=== PATIENT | male | born 1940 | race African-American/Black ===

== ENCOUNTER 2018-08-14 16:00 | Inpatient (IN) ==
[2018-08-14] MEDS ORDERED: NS 1,000 ML IV ONE ×2 (17:31→21:02)
--- NOTE | 2018-08-14 18:02 | PROVIDER DOCUMENTATION ---
This chart was entered by Pita Chinchilla Scribe, acting as scribe for Bandar Tovar MD. HPI-General Adult - General Source: patient - History of Present Illness -Gen Adult Nature of Presenting Problems: Patient is a 77 year old male who presents with low blood pressure. Patient states he was being seen at his PCP's office and was informed he had a low blood pressure. Family states patient has had fever, chills, shortness of breath, and cough for 1 week. States was seen in ED 5 days ago. Location of Pain/Injury: reports: none Pain Radiation: reports: no radiation Quality of Pain: reports: none Severity: reports: mild Onset/Duration: reports: last week Timing: reports: still present Context/Activities at Onset: reports: light activity Associated Symptoms: reports: cough, fever/chills, shortness of breath Similar Symptoms Previously?: Yes Recently seen or treated by another doctor?: Yes <Bandar Tovar - Last Filed: 08/14/18 19:17> <Marguerite Waters - Last Filed: 08/14/18 21:10> - General Chief Complaint: B/P Problems Stated Complaint: LOW BP Time Seen by Provider: 08/14/18 17:11 Allergies/Adverse Reactions: Patient Allergies Allergy/AdvReac Type Severity Reaction Status Date / Time No Known Allergies Allergy Verified 08/14/18 18:00 Home Medications: Home Medication List Medication Instructions Recorded Confirmed Last Taken Type Esomeprazole [Nexium] 40 mg PO DAILY 02/11/14 01/25/18 02/11/14 History Tamsulosin [Flomax] 0.4 mg PO DAILY 02/11/14 01/25/18 02/10/14 History Doxycycline 100 mg PO BID #20 tablet 01/25/18 Unknown Rx Meloxicam 15 mg PO DAILY 01/25/18 01/25/18 Unknown History Metformin [Glucophage] 500 mg PO DAILY 01/25/18 01/25/18 Unknown History PRAVAstatin [Pravachol] 20 mg PO DAILY 01/25/18 01/25/18 Unknown History Sertraline [Zoloft] 50 mg PO DAILY 01/25/18 01/25/18 Unknown History Valsartan 160 mg PO DAILY 01/25/18 01/25/18 Unknown History Dicyclomine [Bentyl] 20 mg PO BID #20 cap 08/08/18 Unknown Rx Ondansetron [Zofran] 4 mg PO Q6H PRN PRN #20 tab 08/08/18 Unknown Rx Review of Systems - Adult - REVIEW OF SYSTEMS - ADULT Constitutional: reports: see HPI, chills, fever. denies: fatique Eyes: reports: no symptoms reported Ears, Nose, Mouth & Throat: reports: no symptoms reported Cardiovascular: reports: no symptoms reported Respiratory: reports: see HPI, cough, shortness of breath. denies: wheezing Gastrointestinal: reports: no symptoms reported Genitourinary: reports: no symptoms reported Musculoskeletal: reports: no symptoms reported. denies: back pain, muscle aches, neck pain Integumentary: reports: no symptoms reported Neurological: reports: no symptoms reported Psychiatric: reports: no symptoms reported Endocrine: reports: no symptoms reported Hematologic/Lymphatic: reports: no symptoms reported Allergic/Immunologic: reports: no symptoms reported All Other Systems: Reviewed and Negative <Bandar Tovar - Last Filed: 08/14/18 19:17> Past History - Adult - PAST MEDICAL HISTORY-ADULT Review of Records: reports: Old Records Reviewed, Nursing Assessment Review, Medications Reviewed, Social history reviewed & non-contributory. Major Childhood Illnesses: reports: denies history Cardiovascular: reports: HTN Respiratory: reports: COPD Gastrointestinal: reports: GERD Obstetrical/Gynecological: reports: denies history Genitourinary: reports: denies history Musculoskeletal: reports: denies history Neurological: reports: denies history Psychiatric: reports: denies history Endocrine/Immune: reports: Diabetes Other Conditions: reports: denies history - PRIOR SURGERIES/PROCEDURES Surgical/Procedure History: reports: orthopedic (extremity) (foot), other (eye) - IMMUNIZATION STATUS Childhood Immunizations: See Nurse Assessment Flu Vaccine: See Nurse Assessment - FAMILY HISTORY Family History: reviewed, not pertinent - SOCIAL HISTORY Smoking: cigarettes, less than 1 pack/day Provider spent 3-5 mins advising pt. on dangers of tobacco.: Discussed manners to quit use, and f/u contacts for add'l counseling. Substance Use: alcohol Alcohol Use Frequency: rarely Living Situation: family <Bandar Tovar - Last Filed: 08/14/18 19:17> Physical Exam-General - PHYSICAL EXAM-ADULT Initial Vital Signs Reviewed: Yes - CONSTITUTIONAL General Appearance: alert, no apparent distress. negative: lethargic, slow to respond - HEAD, EARS, NOSE, MOUTH & THROAT HENMT: normocephalic/atraumatic, moist mucous membranes. negative: angioedema, hearing deficit - RESPIRATORY Respiratory: chest non-tender, wheezing (bilateral). negative: crackles, stridor - CARDIOVASCULAR Cardiovascular: normal peripheral pulses, regular rate, rhythm. negative: tachycardia, systolic murmur - GASTROINTESTINAL (ABDOMEN) Abdominal Exam: normal bowel sounds, soft, tenderness (epigastric). negative: guarding, rebound - MUSCULOSKELETAL Extremity: non-tender, normal inspection. negative: deformity, erythema - SKIN Integumentary: normal color, normal turgor, warm/dry. negative: ecchymosis, erythema, jaundice, rash - NEUROLOGIC Neurologic: grossly normal. negative: aphasia, facial droop - PSYCHIATRIC Psych/Mental Status: normal mood/affect, oriented x 3. negative: anxious <Bandar Tovar - Last Filed: 08/14/18 19:17> Progress - PLAN OF CARE/RESULTS Progress/Plan/Lab Results: Vital Signs - 8 hr 08/14/18 16:18 Temperature 97.4 F L Pulse Rate 74 Respiratory Rate 18 Blood Pressure 79/55 O2 Sat by Pulse Oximetry 97 Result Diagrams: 08/14/18 16:23 08/14/18 16:23 - EKG 1 Time of EKG reading by physician:: 16:26 EKG Read and Signed by:: Bandar Tovar EKG Interpretation (*Must complete 3 of following elements*): Normal Rate: 69 Rhythm: normal sinus rhythm [place]: normal QRS: normal CO Interval: normal ST Wave: normal Comments: normal ECG - CHANGE OF SHIFT REPORT (ED Provider) 1 Report Given and Care Transferred to:: Dr Waters Time of Transfer: 19:00 Items Pending: Labs <Bandar Tovar - Last Filed: 08/14/18 19:17> - PLAN OF CARE/RESULTS Progress/Plan/Lab Results: Vital Signs - 8 hr 08/14/18 16:18 08/14/18 16:47 08/14/18 16:50 Temperature 97.4 F L Pulse Rate 74 68 66 Respiratory Rate 18 17 Blood Pressure 79/55 108/67 O2 Sat by Pulse Oximetry 97 99 97 08/14/18 17:00 08/14/18 17:10 08/14/18 17:20 Temperature Pulse Rate 66 76 71 Respiratory Rate 15 14 16 Blood Pressure O2 Sat by Pulse Oximetry 98 98 99 08/14/18 17:30 08/14/18 17:40 08/14/18 17:44 Temperature Pulse Rate 67 69 77 Respiratory Rate 18 19 18 Blood Pressure 119/80 O2 Sat by Pulse Oximetry 99 99 98 08/14/18 17:50 08/14/18 17:54 08/14/18 18:00 Temperature Pulse Rate 78 74 68 Respiratory Rate 21 19 19 Blood Pressure 119/80 O2 Sat by Pulse Oximetry 99 98 98 08/14/18 18:02 08/14/18 18:32 08/14/18 19:02 Temperature Pulse Rate 67 85 71 Respiratory Rate 18 21 19 Blood Pressure 108/67 108/68 117/70 O2 Sat by Pulse Oximetry 97 98 98 08/14/18 19:54 08/14/18 20:02 08/14/18 20:04 Temperature Pulse Rate 74 72 72 Respiratory Rate 12 16 14 Blood Pressure 104/60 117/64 113/71 O2 Sat by Pulse Oximetry 99 96 96 08/14/18 20:32 Temperature Pulse Rate 74 Respiratory Rate 18 Blood Pressure 101/74 O2 Sat by Pulse Oximetry 95 Laboratory Results - last 24 hr 08/14/18 08/14/18 08/14/18 16:23 16:23 16:23 WBC 5.66 RBC 3.62 L Hgb 11.2 L Hct 32.9 L MCV 90.9 MCH 30.9 MCHC 34.0 RDW Std Deviation 12.8 Plt Count 314 MPV 9.3 Immature Gran % (Auto) 0.7 H Neut % (Auto) 68.0 Lymph % (Auto) 21.2 Potter % (Auto) 7.4 Eos % (Auto) 2.3 Baso % (Auto) 0.4 Immature Gran # (Auto) 0.04 Neut # (Auto) 3.85 Lymph # (Auto) 1.20 Potter # (Auto) 0.42 Eos # (Auto) 0.13 Baso # (Auto) 0.02 Sodium 134 L Potassium 4.3 Chloride 96 L Carbon Dioxide 25 Anion Gap 13 BUN 39 H Creatinine 2.4 H Estimated GFR/1.73 m2 32 BUN/Creatinine Ratio 16 Glucose 132 H Calculated Osmolality 280 Calcium 9.3 Total Bilirubin 0.42 AST 104 H ALT 77 H Alkaline Phosphatase 90 Troponin T < 0.010 Total Protein 7.3 Albumin 3.6 Globulin 3.7 Albumin/Globulin Ratio 1.0 Plasma Lactate Urine Source Urine Color Urine Turbidity Urine pH Ur Specific [place] Urine Protein Ur Glucose (Stick) Ur Ketones (Stick) Urine Blood Urine Nitrite Urine Bilirubin Urobilinogen Dipstick Urine Leukocytes Urine WBC (Auto) Urine RBC (Auto) U Epithel Cells (Auto) Urine Bacteria (Auto) 08/14/18 08/14/18 17:55 19:37 WBC RBC Hgb Hct MCV MCH MCHC RDW Std Deviation Plt Count MPV Immature Gran % (Auto) Neut % (Auto) Lymph % (Auto) [place] % (Auto) Eos % (Auto) Baso % (Auto) Immature Gran # (Auto) Neut # (Auto) Lymph # (Auto) Potter # (Auto) Eos # (Auto) Baso # (Auto) Sodium Potassium Chloride Carbon Dioxide Anion Gap BUN Creatinine Estimated GFR/1.73 m2 BUN/Creatinine Ratio Glucose Calculated Osmolality Calcium Total Bilirubin AST ALT Alkaline Phosphatase Troponin T Total Protein Albumin Globulin Albumin/Globulin Ratio Plasma Lactate 1.5 Urine Source CLEAN CATCH Urine Color YELLOW Urine Turbidity CLEAR Urine pH 5.0 Ur Specific [place] 1.014 Urine Protein NEGATIVE Ur Glucose (Stick) NEGATIVE Ur Ketones (Stick) NEGATIVE Urine Blood NEGATIVE Urine Nitrite NEGATIVE Urine Bilirubin NEGATIVE Urobilinogen Dipstick 2 A Urine Leukocytes NEGATIVE Urine WBC (Auto) <10 Urine RBC (Auto) <10 U Epithel Cells (Auto) <10 Urine Bacteria (Auto) NEGATIVE Orders Category Date Time Status Nursing- Obtain EKG ONCE Care 08/14/18 17:29 Active CHEST-1 VIEW [RAD] Stat Exams 08/14/18 17:29 Completed CBC WITH ELECTRONIC DIFF [HEME] Stat Lab 08/14/18 16:23 Completed COMPREHENSIVE METABOLIC PANEL [CHEM] Stat Lab 08/14/18 16:23 Completed LACTATE, PLASMA [CHEM] Stat Lab 08/14/18 17:55 Completed TROPONIN T Stat Lab 08/14/18 16:23 Completed URINALYSIS [URINALYSIS] Stat Lab 08/14/18 19:37 Completed 0.9% Sodium Chloride Inj [Ns] 1,000 ml Med 08/14/18 17:31 Discontinued IV 999 mls/hr 0.9% Sodium Chloride Inj [Ns] 1,000 ml Med 08/14/18 21:02 Active IV 999 mls/hr Azithromycin 500 mg/Ns [Zithromax 500 mg/Ns] Med 08/14/18 20:59 Active 500 mg in 250 ml IV NOW CefTRIAXONE [Rocephin] 500 mg Med 08/14/18 20:59 Active 0.9% Sodium Chloride Inj [Ns] 50 ml IV NOW EKG [EKG] Stat Ther 08/14/18 17:29 Ordered Patient signed out to me at shift change pending labs. CXR showing PNA. No WBC. BP borderline. Has already been given 1L NS will give another and add rocephin and azithromycin. Spoke to Dr Darling with hospitalist who accepted patient for admission. Further orders to be placed by hospitalist team. Result Diagrams: 08/14/18 16:23 08/14/18 16:23 - CONSULTS/PCP/HOSPITALIST Notification #1 *Consult/PCP/Hospitalist*: Dr Darling Time Discussed: 21:08 Consult Disposition: Admit <Marguerite Waters - Last Filed: 08/14/18 21:10> Departure <Bandar Tovar - Last Filed: 08/14/18 19:17> - Departure Date of Disposition Decision: 08/14/18 Time of Disposition Decision: 21:07 Certified Medical Emergency: Emergent - Critical Care Note This patient required my direct & personal management of CC.: Yes Total Time (mins): 75 Critical Care Statement: This patient required my direct personal management to treat or rule out processes, the absence of which, could potentiallly result in sudden, clinically significant life or limb threatening deterioration. <Marguerite Waters - Last Filed: 08/14/18 21:10> - Departure DIAGNOSIS: Pneumonia Qualifiers: Pneumonia type: due to unspecified organism Laterality: left Lung location: lower lobe of lung Qualified Code(s): J18.1 - Lobar pneumonia, unspecified organism Sepsis Qualifiers: Sepsis type: sepsis due to unspecified organism Qualified Code(s): A41.9 - Sepsis, unspecified organism Disposition: ADMITTED INPATIENT 09 Condition: Stable Referrals and Follow-Ups: Jayme Barnye MD [Primary Care Provider] - Attestation - Physician/ SARAH Attestation The physician spent face to face time with patient:: Yes Advanced Practice Provider documentation review:: Supervising physician onsite and consulted in the evaluation and care of this patient. The physician did have a face to face encounter with the patient. <Bandar Tovar - Last Filed: 08/14/18 19:17> This chart was documented by the indicated scribe, (Pita Chinchilla Scribe) and accurately reflects the services I performed and decisions made by Sharath garcia Donald C., MD, as attested by the provider's signature.
--- NOTE | 2018-08-14 18:03 | Diag Imaging Result Doc PS360 ---
CHEST-1 VIEW - 08/14/2018 INDICATION: fever COMPARISON: 08/08/2018 FINDINGS: There is some increasing, mild infiltrate in the left lower lobe. Heart size is top normal. No pneumothorax or pleural effusion. IMPRESSION: Left lower lobe infiltrate suggesting pneumonia. Recommend treatment and follow-up. Electronically signed by Issac Stark 08/14/2018 6:00 PM
[2018-08-14 18:07] LABS: BASO# 0.02 X1000 (0.0-0.2); BASO% 0.4 % (0.0-0.8); EOS# 0.13 X1000 (0.0-0.7); EOS% 2.3 % (0.0-10.0); HEMATOCRIT 32.9 % (42.0-52.0); HEMOGLOBIN 11.2 g/dL (14.0-18.0); IMM GRAN# 0.04 X1000 (0.0-0.04); IMM GRAN% 0.7 % (0.0-0.5); LYMPH% 21.2 % (20.5-51.1); MCH 30.9 PG (27-31); MCV 90.9 FL (81-99); MONO# 0.42 X1000 (0.11-0.59); MONO% 7.4 % (1.7-9.3); MPV 9.3 FL (7.4-10.4); NEUT# 3.85 X1000 (1.4-6.5); PLT 314 X1000 (130-400); RBC 3.62 XMIL (4.7-6.1); RDW 12.8 % (11.5-14.5); WBC 5.66 X1000 (4.8-10.8)
[2018-08-14 18:36] LABS: ALBUMIN 3.6 g/dL (3.5-5.0); CALCIUM 9.3 mg/dL (8.8-10.2); CREATININE 2.4 mg/dL (0.7-1.2); POTASSIUM 4.3 mmol/L (3.5-5.1); TOTAL BILIRUBIN 0.42 mg/dL (0.20-1.00); TOTAL PROTEIN 7.3 g/dL (6.3-8.3)
[2018-08-14 19:44] LABS: URINE SOURCE CLEAN CATCH
[2018-08-14 20:01] LABS: BILIRUBIN URINE NEGATIVE (NEGATIVE); BLOOD URINE NEGATIVE (NEGATIVE); COLOR YELLOW; GLUCOSE URINE NEGATIVE (NEGATIVE); KETONE URINE NEGATIVE (NEGATIVE); LEUKOCYTES URINE NEGATIVE (NEGATIVE); NITRITE URINE NEGATIVE (NEGATIVE); PROTEIN URINE NEGATIVE (NEGATIVE); SP GRAVITY URINE 1.014; TURBIDITY URINE CLEAR (CLEAR); UROBILINOGEN URINE 2 mg/dL (NORMAL)
[2018-08-14 20:02] LABS: UR EPITHELIAL CELLS <10 /HPF (<10); URINE BACTERIA NEGATIVE /HPF; URINE RBC <10 /HPF (<10); URINE WBC <10 /HPF (<10)
[2018-08-14] MEDS ORDERED: ROCEPHIN 500 MG in NS 50 ML IV ONE (20:59)
[2018-08-14] MEDS ORDERED: ZITHROMAX 500 MG/NS 500 MG/250 ML IVPB IV ONE (20:59)
[2018-08-15] MEDS: NS 1,000 ML IV SCH ×2 (03:40→14:00)
[2018-08-15] MEDS: DUONEB (A & A) INH PRN ×3 (04:51→23:25)
[2018-08-15 06:03] LABS: BASO# 0.04 X1000 (0.0-0.2); BASO% 0.8 % (0.0-0.8); EOS# 0.19 X1000 (0.0-0.7); EOS% 3.7 % (0.0-10.0); HEMATOCRIT 30.4 % (42.0-52.0); HEMOGLOBIN 10.2 g/dL (14.0-18.0); IMM GRAN# 0.04 X1000 (0.0-0.04); IMM GRAN% 0.8 % (0.0-0.5); LYMPH# 1.77 X1000 (1.2-3.4); LYMPH% 34.1 % (20.5-51.1); MCH 30.9 PG (27-31); MCHC 33.6 g/dL (33-37); MCV 92.1 FL (81-99); MONO# 0.35 X1000 (0.11-0.59); MONO% 6.7 % (1.7-9.3); MPV 8.5 FL (7.4-10.4); NEUT% 53.9 % (42.2-75.2); PLT 292 X1000 (130-400); RDW 12.9 % (11.5-14.5); WBC 5.19 X1000 (4.8-10.8)
[2018-08-15 06:35] LABS: CALCIUM 8.4 mg/dL (8.8-10.2); CREATININE 1.6 mg/dL (0.7-1.2)
[2018-08-15] MEDS: HUMULIN R SUBQ SCH ×4 (06:47→21:59)
--- NOTE | 2018-08-15 07:45 | EKG Report ---
Test Performed on : 08/14/2018 4:26:04 PM Test Reason : BLOOD PRESSURE Blood Pressure : / mmHG Vent. Rate : 069 BPM Atrial Rate : 069 BPM P-R Int : 166 ms QRS Dur : 072 ms QT Int : 378 ms P-R-T Axes : 062 -12 055 degrees QTc Int : 405 ms Normal sinus rhythm. Normal ECG When compared with ECG of 08-AUG-2018 18:38, (Unconfirmed) Vent. rate has decreased BY 35 BPM Unconfirmed Result
--- NOTE | 2018-08-15 15:06 | HISTORY AND PHYSICAL ---
PRIMARY CARE PHYSICIAN: Jayme Barney MD. CHIEF COMPLAINT: Shortness of breath x2 weeks and productive cough. HISTORY OF PRESENTING ILLNESS: A 77-year-old male with a history of COPD, hypertension, diabetes mellitus type 2, and hyperlipidemia, who presented to the emergency department with 2 week history of having persistent productive cough and fever. The patient states that over the past several days he was having worsening shortness of breath. The patient was evaluated in the emergency department, had imaging done which did show left lobe lower infiltrates consistent with pneumonia. Due to his presenting symptoms, he will require admission for further management. At the time of my examination, the patient denied any headache, nausea, vomiting, diarrhea, chest pain, hemoptysis, melena, weight changes, but complained of cough, fever, and shortness of breath. PAST MEDICAL HISTORY: History of COPD, hypertension, diabetes mellitus type 2, hyperlipidemia. PAST SURGICAL HISTORY: Bilateral shoulder surgery, bilateral carpal tunnel repair, bilateral feet surgery. ALLERGIES: No known drug allergies. CURRENT MEDICATIONS: Include Bentyl 20 mg p.o. b.i.d., Nexium 40 mg p.o. daily, meloxicam 15 mg p.o. daily, metformin 500 mg p.o. daily, pravastatin 20 mg p.o. daily, Zoloft 50 mg p.o. daily, Valsartan 160 mg p.o. daily. SOCIAL HISTORY: He is a former smoker. Admits to social alcohol use. Denies any illicit drug use. FAMILY HISTORY: No history of coronary artery disease. REVIEW OF SYSTEMS: A 14-point review of systems is as per HPI, other systems negative. PHYSICAL EXAMINATION: GENERAL: Cooperative, friendly male. He is resting more comfortably now. VITAL SIGNS: Temperature 97.4, pulse 74, respirations 18, blood pressure 79/55, repeat is 108/67. HEENT: Atraumatic, normocephalic. Extraocular movements intact. PERRLA. NECK: No masses. CHEST: Bibasilar rales. CARDIOVASCULAR: Regular rate and rhythm. ABDOMEN: Soft, positive bowel sounds. EXTREMITIES: Trace edema. NEUROLOGIC: He is awake, alert, oriented x3. GENITOURINARY: No bladder distention. SKIN: Warm. LABORATORIES AND STUDIES: Sodium 134, potassium 4.3, chloride 96, CO2 25, BUN is 39, creatinine is 2.4, glucose 132. WBC is 5.66, hemoglobin 11.2, hematocrit 32.9, platelet 314. Chest x-ray shows left lower lobe infiltrate suggestive of pneumonia. ASSESSMENT: This is a 77-year-old male with a history of chronic obstructive pulmonary disease, hypertension, diabetes mellitus type 2, and hyperlipidemia, who presented to the emergency department with 2 weeks history of worsening shortness of breath and productive cough. He was evaluated in the emergency department. He had imaging done, which was consistent with pneumonia. Subsequently, he will require admission for further management. 1. Pneumonia. 2. Chronic obstructive pulmonary disease. 3. Diabetes mellitus type 2. 3. Hypertension. 4. Acute kidney injury. PLAN: 1. Will admit the patient to Medical floor with telemetry. 2. Will check blood cultures, start patient on IV antibiotics. 3. Will continue with DuoNebs. 4. Monitor blood glucose and put patient on sliding scale insulin regimen. 5. Will monitor blood pressure closely. 6. Will continue with IV fluids and monitor renal function. 7. Will put the patient on DVT prophylaxis, SCD. 8. Will continue to follow, reassess, and make further recommendation based on the patient's clinical course. cc: Esequiel Darling MD
[2018-08-15] MEDS ORDERED: ZITHROMAX 500 MG/NS 500 MG/250 ML IVPB IV SCH (20:00)
[2018-08-15] MEDS ORDERED: ROCEPHIN 1 GM in NS 50 ML IV SCH (21:00)
[2018-08-16] MEDS: DUONEB (A & A) INH PRN ×3 (03:40→11:05)
[2018-08-16] MEDS: NS 1,000 ML IV SCH (06:35)
[2018-08-16] MEDS: HUMULIN R SUBQ SCH ×2 (06:35→11:27)
[2018-08-16 08:18] LABS: BASO# 0.02 X1000 (0.0-0.2); BASO% 0.5 % (0.0-0.8); EOS# 0.15 X1000 (0.0-0.7); EOS% 3.7 % (0.0-10.0); HEMATOCRIT 27.9 % (42.0-52.0); HEMOGLOBIN 9.2 g/dL (14.0-18.0); IMM GRAN# 0.04 X1000 (0.0-0.04); LYMPH# 1.17 X1000 (1.2-3.4); MCH 30.6 PG (27-31); MCV 92.7 FL (81-99); MONO# 0.34 X1000 (0.11-0.59); MONO% 8.4 % (1.7-9.3); MPV 8.6 FL (7.4-10.4); NEUT# 2.32 X1000 (1.4-6.5); NEUT% 57.4 % (42.2-75.2); PLT 292 X1000 (130-400); RBC 3.01 XMIL (4.7-6.1); RDW 12.9 % (11.5-14.5); WBC 4.04 X1000 (4.8-10.8)
[2018-08-16 08:45] LABS: AGAP 5; BUN 16 mg/dL (8-22); CHLORIDE 110 mmol/L (98-107); COSMO 285; CREATININE 1.2 mg/dL (0.7-1.2); GLUCOSE 109 mg/dL (70-104); POTASSIUM 3.8 mmol/L (3.5-5.1); SODIUM 142 mmol/L (136-145); TCO2 27 mmol/L (25-35)
[2018-08-16 08:46] LABS: CALCIUM 8.4 mg/dL (8.8-10.2); ESTIMATED GFR > 60
[2018-08-16] MEDS ORDERED: FLOMAX PO SCH (09:00)
[2018-08-16] MEDS ORDERED: ZOLOFT PO SCH (09:00)
[2018-08-16] MEDS ORDERED: PRAVACHOL PO SCH (09:00)
[2018-08-16] MEDS ORDERED: CLARITIN PO SCH (09:00)
[2018-08-16] MEDS ORDERED: ASPIRIN PO SCH (09:00)
[2018-08-16 12:00] VITALS: BP 140/60
--- NOTE | 2018-08-17 15:14 | DISCHARGE SUMMARY ---
ADMISSION DATE: 08/15/2018 DISCHARGE DATE: 08/16/2018 ADMITTING DIAGNOSES: 1. Pneumonia. 2. Chronic obstructive pulmonary disease. 3. Diabetes mellitus type 2. 4. Hypertension. 5. Acute kidney injury. DISCHARGE DIAGNOSES: 1. Pneumonia. 2. Chronic obstructive pulmonary disease. 3. Diabetes mellitus type 2. 4. Hypertension. HOSPITAL COURSE: Mr. Arce is a 77-year-old male with a history of COPD, hypertension, diabetes type 2, who presented to the ER with a 2-week history of having a productive cough and fever. He was admitted for pneumonia in the left lower lobe and started on azithromycin and ceftriaxone and IV fluid hydration. Breathing treatments were administered q.4 hours p.r.n. The patient was monitored closely over the next couple of days. The patient has not had any fever and is being discharged today home with home with self care. FOLLOWUP: The patient is to follow up with his primary care physician, Dr. Jayme Barney, in 10 days. He is to call and schedule an appointment. DISCHARGE MEDICATIONS: 1. Albuterol sulfate 1 inhaled t.i.d. 2. Aspirin 81 mg p.o. daily. 3. Centrum adult 1 p.o. daily. 4. Flomax 0.4 mg p.o. daily. 5. Metformin 500 mg p.o. daily. 6. Levocetirizine dihydrochloride 5 mg p.o. daily. 7. Meloxicam 15 mg p.o. daily. 8. Pravachol 20 mg p.o. daily. 9. Valsartan 160 mg p.o. daily. 10. Ventolin 2 puffs inhaled b.i.d. 11. Sertraline 50 mg p.o. daily. 12. Omnicef 300 mg p.o. b.i.d. for 10 days. DISCHARGE DIET: Diabetic diet. DISCHARGE ACTIVITY: Patient to resume normal activity. DISCHARGE INSTRUCTIONS: To follow up with Dr. Jayme Barney in 10 days. Dictated by MOSHE Hale for Jonathan Copeland MD Addendum: Patient seen and examined by myself. Agree with MOSHE note. It reflects my assessment and plan. Patient is being discharged in stable condition. Will be seen by his primary care doctor in a week. cc: MD Jayme Martins, MD [facility]
== END 2018-08-16 12:52 | disposition home or self-care (01) | DRG 194 ==
LOC: ED 16:00 → 4N 08-15 02:27 → SUATTDRO 08-15 02:27
PROVIDERS: ATTEND Internal Medicine
CPT/HCPCS: 71010; 71045; 80048; 80053; 81001; 82948; 83605; 84484; 85025; 87040; 87088; 93005; 94640; 94761; 94799; 96361; 96365; 96367; 99285; A9270; J0456; J0696; J7030; XXXXX